=== PATIENT | male | born 1950 | race Caucasian/White ===

== ENCOUNTER → 2017-12-13 | Outpatient (CLI) | payer MEDICARE ==
[~2017-12-13] MED LIST: ALLO-119 PO; ALLO100T70 PO; ASPI-1471 PO; CETI10CA8 PO; CYAN1000 IJ; ESOM40CA42 PO; FLAX100038 PO; LEVO-3 PO; METH4TAB66 PO; SIL50 PO; TADA2.5T3 PO; VAL80 PO
[2017-12-13 10:31] LABS: LDL CHOLESTEROL 96 mg/dl
== END ==
LOC: LAB 08:57
PROVIDERS: ATTEND Internal Medicine
DX: Z12.5 Encounter for screening for malignant neoplasm of prostate (principal); I10 Essential (primary) hypertension; M10.9 Gout, unspecified; E53.8 Deficiency of other specified B group vitamins
CPT/HCPCS: 36415; 82607; 84550; G0103; 82040; 82247; 82310; 82374; 82435; 82465; 82565; 82947; 83718; 84075; 84132; 84153; 84155; 84295; 84450; 84460; 84478; 84520

== ENCOUNTER → 2018-06-20 | Outpatient (CLI) | payer MEDICARE, OTHER ==
[~2018-06-20] MED LIST changes: +TRIA15CR40 TP
[2018-06-20 10:29] LABS: LDL CHOLESTEROL 81 mg/dl
== END ==
LOC: LAB 09:20
PROVIDERS: ATTEND Internal Medicine
DX: Z12.5 Encounter for screening for malignant neoplasm of prostate (principal); R73.01 Impaired fasting glucose; I10 Essential (primary) hypertension; E03.9 Hypothyroidism, unspecified; E53.8 Deficiency of other specified B group vitamins; M10.9 Gout, unspecified
CPT/HCPCS: 36415; 82607; 83036; 84443; 84550; G0103; 82040; 82247; 82310; 82374; 82435; 82465; 82565; 82947; 83718; 84075; 84132; 84153; 84155; 84295; 84450; 84460; 84478; 84520